=== PATIENT | female | born 1945 | race Caucasian/White ===

== ENCOUNTER 2024-03-19 16:53 | Inpatient (IN) | payer MEDICARE ==
[2024-03-19 18:39] LABS: BASOPHILS PERCENT AUTO 0.5 % (0.0-1.0); EOSINOPHILS ABSOLUTE AUTO 0.1 K/mm3 (0.0-0.4); EOSINOPHILS PERCENT AUTO 1.5 % (0.0-6.0); HEMATOCRIT 33.4 % (37.0-47.0); HEMOGLOBIN 10.8 gm/dl (12.0-16.0); IMMATURE GRAN ABSOLUTE AUTO 0.16 K/mm3 (0.00-0.05); IMMATURE GRAN PERCENT AUTO 2.9 % (0.0-0.4); LYMPHOCYTES ABSOLUTE AUTO 0.3 K/mm3 (1.0-4.8); LYMPHOCYTES PERCENT AUTO 5.6 % (24.0-44.0); MEAN CORPUSCULAR HEMOGLOBIN 31.6 pg (28.0-32.0); MEAN CORPUSCULAR HGB CONC 32.3 g/dl (32.0-36.0); MEAN CORPUSCULAR VOLUME 97.7 fl (83.0-99.0); MEAN PLATELET VOLUME 9.6 fl (9.4-12.3); MONOCYTES ABSOLUTE AUTO 0.5 K/mm3 (0.0-0.8); MONOCYTES PERCENT AUTO 9.5 % (0.0-8.0); NEUTROPHILS ABSOLUTE AUTO 4.4 K/mm3 (1.8-7.7); PLATELET COUNT,PLT 167 K/mm3 (150-400); RED BLOOD CELL COUNT 3.42 M/mm3 (4.10-5.30); WHITE BLOOD CELL COUNT,WBC 5.49 K/mm3 (3.9-11.3)
[2024-03-19 18:56] LABS: APPEARANCE,URINE CLEAR (Clear); BILIRUBIN,URINE NEGATIVE (Negative); COLOR,URINE YELLOW (Yellow); GLUCOSE,URINE NEGATIVE (Negative); KETONES,URINE NEGATIVE (Negative); LEUKOCYTE ESTERASE,URINE NEGATIVE (Negative); NITRITE,URINE NEGATIVE (Negative); OCCULT BLOOD,URINE NEGATIVE (Negative); PH,URINE 7.5 (5.0-8.0); PROTEIN,URINE TRACE (Negative); UROBILINOGEN,URINE 0.2 (0.2-1.0)
[2024-03-19 19:06] LABS: INR 0.96; PROTHROMBIN TIME 10.3 SECONDS (9.7-12.0)
[2024-03-19 19:07] LABS: PTT,PARTIAL THROMBOPLSTIN TIME 23.6 SECONDS (21.7-31.4)
[2024-03-19 19:13] LABS: AMPHETAMINES SCREEN, URINE NEGATIVE (CUTOFF=500); BARBITURATE SCREEN,URINE NEGATIVE (CUTOFF=200); BUPRENORPHINE SCREEN,URINE NEGATIVE (CUTOFF=10); METHADONE SCREEN, URINE NEGATIVE (CUTOFF=200); METHAMPHETAMINES SCREEN, URINE NEGATIVE (CUTOFF=500); OXYCODONE SCREEN,URINE NEGATIVE (CUT0FF=100); THC SCREEN,URINE 20 NG/ML NEGATIVE (CUTOFF=50)
[2024-03-19 19:14] LABS: BENZODIAZEPINES SCREEN,URINE PRESUMPTIVE POSITIVE (CUTOFF=150)
[2024-03-19 19:25] LABS: A/G RATIO 0.8 (1-2); ALBUMIN 2.9 g/dl (3.4-5.0); ANION GAP 11.7 (5-15); BILIRUBIN TOTAL 0.6 mg/dL (0.2-1.0); BUN/CREATININE RATIO 23.3 (14-18); C-REACTIVE PROTEIN 6.87 mg/dL (<0.30); CALCIUM 9.1 mg/dL (8.5-10.1); CREATININE 0.9 mg/dL (0.55-1.02); EST CRCL DRUG DOSING (CG) 45.2 mL/min; MAGNESIUM 2.5 mg/dL (1.8-2.4); POTASSIUM,K 3.7 mEq/L (3.5-5.1); PROTEIN TOTAL,TP 6.6 g/dl (6.4-8.2)
[2024-03-19] MEDS: Sodium Chloride 0.9% 10 ML Syringe FLUSH PRN ×2 (19:26→19:50)
[2024-03-19 19:28] LABS: TSH 1.94 uIU/mL (0.358-3.74)
[2024-03-19 19:28] LABS: BACTERIA,URINE MODERATE /hpf (FEW); MUCUS,URINE FEW /hpf (FEW); RBC,URINE 0-5 /hpf (0-5); SQUAMOUS EPITHELIAL CELLS,UR 0-5 /hpf (0-5); WBC,URINE 0-5 /hpf (0-5)
[2024-03-19] MEDS: Sodium Chloride 0.9% 1,000 ML IV SCH (19:28)
[2024-03-19] MEDS: diphenhydrAMINE 50 MG/ML SDV IVPUSH ONE (19:28)
[2024-03-19] MEDS: Sodium Chloride 0.9% 45 ML IV SCH (19:49)
[2024-03-19] MEDS: Iopamidol 755 Mg/ML 100 ML Bottle IVPUSH ONE ×2 (19:49→20:03)
[2024-03-19] MEDS: Iopamidol 612 MG/ML 100 ML Bottle IVPUSH ONE (20:03)
[2024-03-19 20:09] LABS: CORONAVIRUS COVID-19 NAA NEGATIVE (NEGATIVE); INFLUENZA A NAA NEGATIVE (NEGATIVE); RESPIRATORY SYNCYTIAL VIR NAA NEGATIVE (NEGATIVE)
[2024-03-20] MEDS: Enoxaparin 40 MG/0.4 ML Syringe SUBCUT SCH (08:13)
[2024-03-20] MEDS: D5 1/2 NS w/ 20 mEq/L KCl 1,000 ML IV SCH (08:26)
[2024-03-20] MEDS: Docusate Sodium 100 MG Cap PO SCH (20:09)
[2024-03-20] MEDS: traMADol 50 MG Tab PO SCH (20:09)
[2024-03-20] MEDS: traZODone 50 MG Tab PO SCH (20:09)
[2024-03-20] MEDS: levETIRAcetam 500 MG Tab PO SCH (20:09)
[2024-03-21] MEDS: Hyaluronidase, Human Recomb. 150 Unit/ML Vial IJ ONE (01:34)
[2024-03-21] MEDS: Levothyroxine 88 MCG Tab PO SCH (04:33)
[2024-03-21] MEDS: Pantoprazole 40 MG Tab.CR PO SCH (06:52)
[2024-03-21] MEDS: Folic Acid 1 MG Tab PO SCH (08:09)
[2024-03-21] MEDS: Citalopram 20 MG Tab PO SCH (08:09)
[2024-03-21] MEDS ORDERED: Non-Formulary Medication 1 Each (Omeprazole 20 MG Capsule.Dr) PO SCH (09:00)
[2024-03-21] MEDS ORDERED: Non-Formulary Medication 1 Each (Escitalopram 10 MG Tablet) PO SCH (09:00)
[2024-03-21] MEDS: Dexamethasone 4 MG Tab PO SCH (09:10)
[2024-03-21] MEDS: Megestrol Susp 40 MG/ML 10 ML UD Cup PO SCH (09:10)
[2024-03-24] MEDS: Sennosides/Docusate Sodium 50-8.6 MG Tab PO PRN (09:10)
[2024-03-26 04:53] LABS: BASOPHILS ABSOLUTE AUTO 0.1 K/mm3 (0.0-0.2); BASOPHILS PERCENT AUTO 0.6 % (0.0-1.0); EOSINOPHILS PERCENT AUTO 0.2 % (0.0-6.0); HEMATOCRIT 31.5 % (37.0-47.0); HEMOGLOBIN 10.7 gm/dl (12.0-16.0); IMMATURE GRAN ABSOLUTE AUTO 1.04 K/mm3 (0.00-0.05); LYMPHOCYTES ABSOLUTE AUTO 0.5 K/mm3 (1.0-4.8); LYMPHOCYTES PERCENT AUTO 4.8 % (24.0-44.0); MEAN CORPUSCULAR HEMOGLOBIN 32.6 pg (28.0-32.0); MONOCYTES ABSOLUTE AUTO 0.7 K/mm3 (0.0-0.8); MONOCYTES PERCENT AUTO 7.1 % (0.0-8.0); NEUTROPHILS ABSOLUTE AUTO 7.2 K/mm3 (1.8-7.7); NEUTROPHILS PERCENT AUTO 76.3 % (41.0-71.0); NRBC ABSOLUTE 0.03 (0.00-0.02); NRBC PERCENT 0.3 % (0.0-0.2); PLATELET COUNT,PLT 226 K/mm3 (150-400); RED BLOOD CELL COUNT 3.28 M/mm3 (4.10-5.30); WHITE BLOOD CELL COUNT,WBC 9.49 K/mm3 (3.9-11.3)
[2024-03-26] MEDS: Acetaminophen 325 MG Tab PO PRN (05:18)
[2024-03-26 05:19] LABS: A/G RATIO 0.8 (1-2); ALBUMIN 2.7 g/dl (3.4-5.0); ANION GAP 15.2 (5-15); BILIRUBIN TOTAL 0.2 mg/dL (0.2-1.0); BUN/CREATININE RATIO 21.7 (14-18); CALCIUM 9.5 mg/dL (8.5-10.1); CREATININE 1.2 mg/dL (0.55-1.02); EST CRCL DRUG DOSING (CG) 33.9 mL/min; POTASSIUM,K 4.2 mEq/L (3.5-5.1); PROTEIN TOTAL,TP 6.2 g/dl (6.4-8.2)
[2024-03-26 05:54] LABS: SLIDE REVIEW ABNORMAL SMEAR
[2024-03-26] MEDS: Fluticasone NASAL Spray 16 GM Bottle NASBOTH SCH (09:24)
== END 2024-03-28 13:05 | DRG 597 ==
LOC: JD.ED 16:53 → JD.MS 21:59 → OBSVTOIN 03-22 12:17
PROVIDERS: ADMIT Hospitalist; ATTEND Internal Medicine
DX: C50.919 Malignant neoplasm of unspecified site of unspecified female breast (principal); C79.9 Secondary malignant neoplasm of unspecified site; C34.11 Malignant neoplasm of upper lobe, right bronchus or lung; C64.9 Malignant neoplasm of unspecified kidney, except renal pelvis; C74.92 Malignant neoplasm of unspecified part of left adrenal gland; R53.1 Weakness; C50.911 Malignant neoplasm of unspecified site of right female breast; G93.6 Cerebral edema; C78.01 Secondary malignant neoplasm of right lung; C77.1 Secondary and unspecified malignant neoplasm of intrathoracic lymph nodes; Z88.2 Allergy status to sulfonamides; Z91.041 Radiographic dye allergy status; C79.72 Secondary malignant neoplasm of left adrenal gland; C79.02 Secondary malignant neoplasm of left kidney and renal pelvis; C79.51 Secondary malignant neoplasm of bone; C79.31 Secondary malignant neoplasm of brain; Z66 Do not resuscitate; R29.6 Repeated falls; K21.9 Gastro-esophageal reflux disease without esophagitis; H54.7 Unspecified visual loss; F41.9 Anxiety disorder, unspecified; F32.A Depression, unspecified; E03.9 Hypothyroidism, unspecified; Z88.8 Allergy status to other drugs, medicaments and biological substances; Z88.1 Allergy status to other antibiotic agents; Z88.5 Allergy status to narcotic agent; Z91.048 Other nonmedicinal substance allergy status; Z91.013 Allergy to seafood; Z91.040 Latex allergy status; Z91.018 Allergy to other foods; Z79.899 Other long term (current) drug therapy; Z86.73 Personal history of transient ischemic attack (TIA), and cerebral infarction without residual deficits; Z98.890 Other specified postprocedural states
CPT/HCPCS: 0241U; 36415; 70450; 70496; 70498; 71045; 71260; 74177; 80053; 80143; 80179; 80306; 80307; 81001; 83605; 83735; 83880; 84443; 84484; 85025; 85610; 85730; 86140; 93005; 96361; 96374; 99285; 93010; 99223; 99232; 99239; A9270-GY; C1758; J1200; J1650; J3480; J3490; J7030; J8540; Q9967; U0002